=== PATIENT | female | born 1995 | race Caucasian/White ===

== ENCOUNTER 2018-03-28 21:21 | Emergency (ER) | payer BC ==
[~2018-03-28] VITALS: Ht 162.6 cm; Wt 61.2 kg
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
[2018-03-28 22:53] VITALS: BP 112/74
[2018-03-28] MEDS ORDERED: IBUPROFEN600 MG ORAL (22:54)
[2018-03-28 23:05] VITALS: BP 112/74
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
== END 2018-03-28 23:05 | disposition home or self-care (01) ==
LOC: EDBD 21:21 → EMR 22:00
DX: S20.219A Contusion of unspecified front wall of thorax, initial encounter (principal); V49.9XXA Car occupant (driver) (passenger) injured in unspecified traffic accident, initial encounter; R55 Syncope and collapse; M25.552 Pain in left hip; S70.02XA Contusion of left hip, initial encounter; S00.93XA Contusion of unspecified part of head, initial encounter; S16.1XXA Strain of muscle, fascia and tendon at neck level, initial encounter
CPT/HCPCS: 70450; 81025; 99283